=== PATIENT | male | born 1950 | race Caucasian/White ===

== ENCOUNTER 2017-03-04 07:01 | Inpatient (IN) ==
[2017-03-02 17:15] LABS: Basophils # (Auto) 0 K/mcL (0.0-0.3); Basophils % (Auto) 0.4 % (0.0-2.0); Eosinophils # (Auto) 0.2 K/mcL (0.0-0.7); Eosinophils % (Auto) 3.9 % (0.0-7.0); Granulocytes % (Auto) 57.6 % (38.0-78.0); Lymphocytes # (Auto) 1.5 K/mcL (1.5-4.8); Lymphocytes % (Auto) 24.3 % (15.5-49.0); Mean Cell Volume 101.6 fL (80.0-100.0); Mean Corpuscular HGB Conc 34.5 g/dL (31.0-36.0); Mean Corpuscular Hemoglobin 35.1 pg (26.0-34.0); Monocytes # (Auto) 0.9 K/mcL (0.1-0.9); Monocytes % (Auto) 13.8 % (1.0-12.0); Platelet Count 267 K/mcL (140-440); RBC 3.47 M/mcL (4.50-5.90); Red Cell Distribution Width 12.7 % (11.5-14.5)
[2017-03-02 17:20] LABS: Blood Urea Nitrogen 18 mg/dl (8-23)
[2017-03-02 17:29] LABS: Appearance,Urine CLEAR; Bilirubin,Urine NEG (NEG); Color,Urine YELLOW; Glucose,Urine (UA) NEGATIVE (NEG); Leukocyte Esterase,Urine NEG /uL (NEG); Nitrate,Urine NEG (NEG); Protein,Urine NEG (NEG); Specific Gravity,Urine 1.025 (1.000-1.035); Urine Blood NEG mg/dL (<0.03); Urobilinogen,Urine NEG (NEG)
[~2017-03-04 07:01] MED LIST: 0.9 % SODIUM CHLORIDE 250 ML IV SCH; CELECOXIB 200 MG CAPSULE PO SCH; PREGABALIN 75 MG CAPSULE PO SCH; ceFAZolin 1 GM VIAL IV SCH; oxyCODONE 10 MG TAB.ER.12H PO SCH
[2017-03-04] MEDS ORDERED: HEPARIN 20,000 UNIT/ML VIAL IR ONE (07:19)
[2017-03-04] MEDS ORDERED: PROPOFOL 200 MG/20 ML VIAL IV ONE (09:45)
[2017-03-04] MEDS ORDERED: DEXAMETHASONE 10 MG/ML VIAL IV ONE (09:45)
[2017-03-04] MEDS ORDERED: MIDAZOLAM 2 MG/2 ML VIAL IV ONE (09:45)
[2017-03-04] MEDS ORDERED: LIDOCAINE HCL/PF 100 MG/5 ML SYRINGE IV ONE (09:45)
[2017-03-04] MEDS ORDERED: ONDANSETRON 4 MG/2 ML VIAL IV ONE (09:45)
[2017-03-04] MEDS ORDERED: PHENYLEPHRINE 10 MG/ML VIAL IV ONE (09:45)
[2017-03-04] MEDS ORDERED: TRANEXAMIC ACID 1,000 MG/10 ML VIAL IV ONE ×2 (09:45→11:25)
[2017-03-04] MEDS ORDERED: KETOROLAC 30 MG, ROPIVACAINE HCL/PF 49.5 ML, EPINEPHrine 0.5 MG, 0.9 % SODIUM CHLORIDE ... IJ ONE (10:34)
[2017-03-04] MEDS ORDERED: IPRATROPIUM/ALBUTEROL 3 ML AMPUL.NEB NEB PRN ×2 (11:22→11:23)
[2017-03-04] MEDS ORDERED: ONDANSETRON 4 MG/2 ML VIAL IV PRN ×2 (11:22→11:25)
[2017-03-04] MEDS ORDERED: METHOCARBAMOL 1,000 MG/10 ML VIAL IV PRN ×2 (11:22→11:23)
[2017-03-04] MEDS ORDERED: NALOXONE HCL 0.4 MG/ML VIAL IV PRN (11:22)
[2017-03-04] MEDS ORDERED: FLUMAZENIL 0.1 MG/ML ML IV PRN (11:22)
[2017-03-04] MEDS ORDERED: diphenhydrAMINE 50 MG/ML VIAL IV PRN (11:22)
[2017-03-04] MEDS ORDERED: MEPERIDINE 25 MG/ML SYRINGE IV PRN ×2 (11:22→11:23)
[2017-03-04] MEDS ORDERED: fentaNYL 100 MCG/2 ML VIAL IV PRN ×2 (11:22→11:23)
[2017-03-04] MEDS ORDERED: ePHEDrine 50 MG/ML AMPUL IV PRN ×2 (11:22→11:23)
[2017-03-04] MEDS ORDERED: LACTATED RINGERS 250 ML IV PRN (11:22)
[2017-03-04] MEDS ORDERED: MEPERIDINE 50 MG/ML SYRINGE IM PRN (11:22)
[2017-03-04] MEDS ORDERED: BENZOCAINE/MENTHOL 1 LOZENGE PO PRN ×3 (11:22→11:25)
[2017-03-04] MEDS ORDERED: KETOROLAC 30 MG/ML VIAL IV PRN (11:25)
[2017-03-04] MEDS ORDERED: FLEETS ADULT ENEMA PR PRN (11:25)
[2017-03-04] MEDS ORDERED: POLYETHYLENE GLYCOL 3350 17 GM PACKET PO PRN (11:25)
[2017-03-04] MEDS ORDERED: MAGNESIUM HYDROXIDE 30 ML ORAL.SUSP PO PRN (11:25)
[2017-03-04] MEDS ORDERED: BISACODYL 10 MG SUPP.RECT PR PRN (11:25)
--- NOTE | 2017-03-04 11:25 | Brief Operative Note ---
Date of procedure: 03/04/17 Pre-op diagnosis: Left hip AVN Post-op diagnosis: same Procedure: Left anterior total hip arthroplasty Grafts/Implants: Yes (Depuy Actis 8 std, +5 36 delta head, 58 cup, neutral Altrx liner) Anesthesia: spinal, GLMA Findings: avascular necrosis Complications: none Surgeon: Dwight Irving [employer]ate Black Belt: Keith Cevallos Estimated blood loss (cc): 250 Specimens Removed/Pathology: none sent Condition: stable Disposition: PACU
[2017-03-04] MEDS ORDERED: LACTATED RINGERS 1,000 ML IV SCH ×2 (11:30)
--- NOTE | 2017-03-04 12:39 | XRay Report ---
CLINICAL INFORMATION: Left hip replacement surgery TECHNIQUE: AP pelvis. AP and crosstable lateral left hip COMPARISON: MRI dated 01/15/2017 FINDINGS: Status post left total hip arthroplasty. Acetabular and femoral head components are in anatomic positions. There is postsurgical soft tissue gas. There are skin diann overlying the left hip IMPRESSION: Status post left total hip arthroplasty Interpreted and Authenticated by: Jared Morrison 03/04/17
--- NOTE | 2017-03-04 13:12 | XRay Report ---
CLINICAL INFORMATION: Left hip replacement COMPARISON: None. FINDINGS: 0.4 minutes fluoroscopy utilized. Left total hip arthroplasty performed IMPRESSION: Fluoroscopy utilized for hip replacement surgery Interpreted and Authenticated by: Jared Morrison 03/04/17
[2017-03-04] MEDS: 0.9 % SODIUM CHLORIDE 1,000 ML IV SCH ×2 (13:33→20:41)
[2017-03-04] MEDS: 0.9 % SODIUM CHLORIDE 10 ML SYRINGE IV SCH ×2 (13:33→20:41)
[2017-03-04] MEDS: ceFAZolin 1 GM VIAL IV SCH ×2 (13:44→22:33)
[2017-03-04] MEDS: HYDROcodone/APAP 10/325MG TABLET PO PRN ×2 (16:35→20:40)
[2017-03-04] MEDS: DOCUSATE SODIUM 100 MG CAPSULE PO SCH (20:40)
[2017-03-04] MEDS: ASPIRIN 325 MG ENTERIC COATED TABLET PO SCH (20:40)
[2017-03-04] MEDS ORDERED: SENNOSIDES 1 TABLET PO SCH (21:00)
[2017-03-05] MEDS: HYDROcodone/APAP 10/325MG TABLET PO PRN ×3 (01:28→09:24)
[2017-03-05] MEDS: 0.9 % SODIUM CHLORIDE 1,000 ML IV SCH ×2 (02:53→05:06)
[2017-03-05] MEDS: 0.9 % SODIUM CHLORIDE 10 ML SYRINGE IV SCH (04:56)
[2017-03-05] MEDS ORDERED: GEMFIBROZIL 600 MG TABLET PO SCH (07:30)
[2017-03-05] MEDS ORDERED: OMEPRAZOLE 20 MG CAPSULE PO SCH (07:30)
[2017-03-05] MEDS ORDERED: LEVOTHYROXINE 25 MCG TABLET PO SCH (07:30)
--- NOTE | 2017-03-05 07:51 | Discharge Summary ---
Providers - Providers Patient information: Note initiated : 03/05/17 at 7:49 am Service Date, if different from initiated Date: [] Patient: Star Mccormick 66 y/o M admitted on 03/04/17 for Left Total Hip Arthroplasty. Chief Complaint: no c/o Discharge date: 03/05/17 Hospitalization Hospital course: Pt was admitted on day of procedure for a R total hip arthroplasty. Pt spent 2 nights on the floor for IV pain meds, IV abx, and PT. Pt was discharged to home with appropriate pain medication and ASA for DVT prophylaxis. Pt will follow-up at [facility] in 2 weeks. Discharge diagnosis: L hip osetoarthrosis Exam - Exam Clean and dry: Yes Weight bearing status: as tolerated Ortho Discharge - [facility] - Patient Instructions Diet: Regular Diet Activity: activity as tolerated Total Hip Protocol: Follow activity instructions as provided by Physical Therapy. Dressing Care: May shower in 2 days - Follow Up Plan Disposition: Home, Self-Care Prognosis: Good Rehab Potential: Good Overall status at discharge: patient is progressing back to baseline Pending Studies Resuscitation Status Full Code Diet Regular Diet Start ThuMar 04 Dinner Hydrocodone Bitart/Acetaminophen ([place] 10/325mg) 0 tab PO Q4HP PRN PRN Reason: Pain Last Admin: 03/05/17 05:09 Dose: 2 tab Admin: 03/05/17 01:28 Dose: 2 tab Admin: 03/04/17 20:40 Dose: 2 tab Aspirin (Ecotrin) 325 mg PO BID [facility] [place] Last Admin: 03/04/17 20:40 Dose: 325 mg Docusate Sodium (Colace) 100 mg PO BID [facility] [place] Last Admin: 03/04/17 20:40 Dose: 100 mg Gemfibrozil (Lopid) 600 mg PO QAMAC [facility] [place] Last Admin: 03/05/17 07:03 Dose: 600 mg Sodium Chloride (Sodium Chloride 0.9%) 1,000 mls @ 125 mls/hr IV .Q8H [facility] [place] Last Admin: 03/05/17 05:06 Dose: 125 mls/hr Admin: 03/05/17 02:53 Dose: Not Given Infusion: 03/04/17 21:33 Dose: 125 mls/hr Admin: 03/04/17 20:41 Dose: Not Given Admin: 03/04/17 13:33 Dose: 125 mls/hr Levothyroxine Sodium (Synthroid) 100 mcg PO ACB [facility] Last Admin: 03/05/17 07:03 Dose: 100 mcg Magnesium Hydroxide (Milk Of Magnesia) 30 ml PO BIDP PRN PRN Reason: Constipation Last Admin: 03/05/17 06:20 Dose: 30 ml Morphine Sulfate (Morphine) 0 mg IV Q1HP PRN PRN Reason: Pain Last Admin: 03/04/17 18:30 Dose: 4 mg Senna (Senokot) 2 tab PO HS THIAGO Last Admin: 03/04/17 20:40 Dose: 2 tab Sodium Chloride (Saline Flush) 10 ml IV Q8 [facility] Last Admin: 03/05/17 04:56 Dose: Not Given Admin: 03/04/17 20:41 Dose: Not Given Admin: 03/04/17 13:33 Dose: Not Given Shift Summary 03/05/17 04:17 Shift Summary by Petey Ying Patient alert and oriented x4, cooperative with cares. NS running at 125ml/hr to left forearm. Dressing to left hip is clean, dry and intact. 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 Has worn CPAP all night so far. Tolerating diet, denies nausea. [place] given for pain management. Will update more at bedside. Initialized on 03/05/17 04:17 - END OF NOTE
[2017-03-05] MEDS: ASPIRIN 325 MG ENTERIC COATED TABLET PO SCH (08:30)
[2017-03-05] MEDS: DOCUSATE SODIUM 100 MG CAPSULE PO SCH (08:32)
[2017-03-05] MEDS ORDERED: VENLAFAXINE 150 MG CAP.XL.24H PO SCH (09:00)
[2017-03-05] MEDS ORDERED: MULTIVIT,THER IRON,CA,FA & MIN 1 TABLET PO SCH (09:00)
[2017-03-05] MEDS ORDERED: FEXOFENADINE 180 MG TABLET PO SCH (09:00)
[2017-03-05] MEDS ORDERED: ASCORBIC ACID 500 MG TABLET PO SCH (09:00)
[2017-03-05] MEDS ORDERED: METOPROLOL SUCCINATE 50 MG TAB.XL.24H PO SCH (09:00)
[2017-03-05] MEDS ORDERED: VITAMIN D3 5,000 UNIT CAPSULE PO SCH (09:00)
[2017-03-05] MEDS ORDERED: FOLIC ACID 1 MG TABLET PO SCH (09:00)
[2017-03-05] MEDS ORDERED: NON FORMULARY MEDICATION 1 DOSE MISCELL (Omeprazole [Omeprazole] 20 MG) PO SCH (09:00)
== END 2017-03-05 11:45 | disposition home or self-care (01) | DRG 470 ==
LOC: MEDSUR 07:01
PROVIDERS: ADMIT Orthopaedic Surgery; ATTEND Orthopaedic Surgery